=== PATIENT | female | born 1970 | race Two or more races ===

== ENCOUNTER 2017-05-15 16:26 | Inpatient (IN) | payer OTHER ==
[~2017-05-15] VITALS: Ht 152.4 cm; Wt 135.0 kg
[2017-05-15] MEDS ORDERED: SYNTHROID150 MCG (16:49)
== END 2017-05-26 14:45 | disposition home or self-care (01) | DRG 390 ==
LOC: ER 16:26 → SURH 05-16 09:57
PROC: BW21YZZ Computerized Tomography (CT Scan) of Abdomen and Pelvis using Other Contrast (ICD-10-PCS; principal; 2017-05-25)
PROC: BW40ZZZ Ultrasonography of Abdomen (ICD-10-PCS; 2017-05-26)
PROC: CF1C1ZZ Planar Nuclear Medicine Imaging of Hepatobiliary System, All using Technetium 99m (Tc-99m) (ICD-10-PCS; 2017-05-26)
DX: K56.690 Other partial intestinal obstruction (principal); K52.89 Other specified noninfective gastroenteritis and colitis

== ENCOUNTER 2017-06-01 09:37 | Outpatient (CLI) | payer OTHER | END 2017-06-01 09:56 | disposition home or self-care (01) | LOC: MAMO-SONO 09:37 | DX: N60.01 Solitary cyst of right breast (principal); N60.02 Solitary cyst of left breast; Z12.31 Encounter for screening mammogram for malignant neoplasm of breast; R10.2 Pelvic and perineal pain; N83.11 Corpus luteum cyst of right ovary ==

== ENCOUNTER → 2017-06-01 | Outpatient (CLI) | payer OTHER ==
[~2017-06-01] MED LIST: SYNTHROID150 MCG
== END | disposition home or self-care (01) ==
LOC: RAD 14:36
DX: R93.3 Abnormal findings on diagnostic imaging of other parts of digestive tract (principal); R10.84 Generalized abdominal pain; Z87.19 Personal history of other diseases of the digestive system

== ENCOUNTER 2017-06-02 08:47 | Outpatient (CLI) | payer OTHER | END 2017-06-02 09:10 | disposition home or self-care (01) | LOC: LAB 08:47 | DX: R10.84 Generalized abdominal pain (principal); K51.90 Ulcerative colitis, unspecified, without complications; E03.9 Hypothyroidism, unspecified; E78.5 Hyperlipidemia, unspecified ==

== ENCOUNTER 2017-06-02 09:23 | Outpatient (CLI) | payer OTHER | END 2017-06-02 12:26 | disposition home or self-care (01) | LOC: RAD 09:23 | DX: R93.3 Abnormal findings on diagnostic imaging of other parts of digestive tract (principal); R10.84 Generalized abdominal pain; Z87.19 Personal history of other diseases of the digestive system ==

== ENCOUNTER 2017-06-23 06:37 | Day surgery (SDC) | payer OTHER | END 2017-06-23 10:30 | disposition home or self-care (01) | LOC: AMB-ENDOS 06:37 → CIR.AMB 14:45 → AMB-ENDOS 14:45 | DX: K56.51 Intestinal adhesions [bands], with partial obstruction (principal); R10.31 Right lower quadrant pain ==

== ENCOUNTER 2017-07-15 07:15 | Inpatient (IN) | payer OTHER ==
[~2017-07-15] VITALS: Ht 152.4 cm; Wt 59.0 kg
[2017-07-21] MEDS ORDERED: MEGACE PO (09:51)
[2017-07-21] MEDS ORDERED: OMEPRAZOLE20 M1 PO (09:52)
[2017-07-21] MEDS ORDERED: BENADRYL50 MG PO (09:53)
[2017-07-21] MEDS ORDERED: SYMAX0.125 MG PO (09:53)
[2017-07-21] MEDS ORDERED: ONDANSETRON PO (09:53)
[2017-07-30] MEDS ORDERED: POLY119PG PO (07:18)
[2017-07-30] MEDS ORDERED: GAS RELIEF125 MG PO (07:18)
[2017-07-30] MEDS ORDERED: TRAM1TAB98 PO (07:18)
== END 2017-07-30 13:01 | disposition home or self-care (01) | DRG 742 ==
LOC: O/R 07-27 05:30 → OB/GYN 07-27 05:30 → SURH 07-27 08:00 → OB/GYN 07-27 13:03
PROVIDERS: Obstetrics & Gynecology; Urology
PROC: 0DNW0ZZ Release Peritoneum, Open Approach (ICD-10-PCS; 2017-07-27)
PROC: 0T788DZ Dilation of Bilateral Ureters with Intraluminal Device, Via Natural or Artificial Opening Endoscopic (ICD-10-PCS; 2017-07-27)
PROC: 0UT90ZZ Resection of Uterus, Open Approach (ICD-10-PCS; principal; 2017-07-27 09:45)
PROC: 0UT50ZZ Resection of Right Fallopian Tube, Open Approach (ICD-10-PCS; 2017-07-27 09:45)
PROC: 0UT00ZZ Resection of Right Ovary, Open Approach (ICD-10-PCS; 2017-07-27 09:45)
DX: N83.11 Corpus luteum cyst of right ovary (principal); K56.50 Intestinal adhesions [bands], unspecified as to partial versus complete obstruction; N72 Inflammatory disease of cervix uteri; N80.2 Endometriosis of fallopian tube; N80.1 Endometriosis of ovary; N73.6 Female pelvic peritoneal adhesions (postinfective); K52.89 Other specified noninfective gastroenteritis and colitis

== ENCOUNTER 2017-07-17 06:53 | Outpatient (CLI) | payer OTHER | END 2017-07-17 06:58 | disposition home or self-care (01) | LOC: LAB 06:53 | DX: Z00.00 Encounter for general adult medical examination without abnormal findings (principal); I10 Essential (primary) hypertension; E03.9 Hypothyroidism, unspecified; E78.00 Pure hypercholesterolemia, unspecified; Z01.818 Encounter for other preprocedural examination; E03.8 Other specified hypothyroidism ==

== ENCOUNTER 2017-08-03 09:36 | Emergency (ER) | payer OTHER ==
[~2017-08-03] VITALS: Ht 152.4 cm; Wt 59.0 kg
[~2017-08-03 09:36] MED LIST changes: +BENADRYL50 MG PO; +GAS RELIEF125 MG PO; +MEGACE PO; +OMEPRAZOLE20 M1 PO; +ONDANSETRON PO; +POLY119PG PO; +SYMAX0.125 MG PO; +TRAM1TAB98 PO
[2017-08-03] MEDS ORDERED: LEVO-T150 MCG (10:31)
== END 2017-08-03 14:18 | disposition home or self-care (01) ==
LOC: ER 09:36
DX: N39.0 Urinary tract infection, site not specified (principal)

== ENCOUNTER 2020-08-27 12:36 | Emergency (ER) | payer OTHER ==
[~2020-08-27] VITALS: Ht 152.4 cm; Wt 59.0 kg
[~2020-08-27 12:36] MED LIST changes: +LEVO-T150 MCG
[2020-08-27] MEDS ORDERED: SYNTHROID150 MCG (13:30)
[2020-08-27] MEDS ORDERED: ORPHENADRINE C100 MG PO (17:31)
== END 2020-08-27 17:58 | disposition home or self-care (01) ==
LOC: ER 12:36
DX: M62.838 Other muscle spasm (principal); M79.662 Pain in left lower leg

== ENCOUNTER → 2020-08-28 13:31 | Outpatient (CLI) | payer OTHER ==
[~2020-08-28 13:31] MED LIST changes: +ORPHENADRINE C100 MG PO
== END | disposition home or self-care (01) ==
LOC: NUCLEAR 13:31
PROVIDERS: ATTEND General Practice
DX: M79.605 Pain in left leg (principal)